=== PATIENT | male | born 1985 | race Hispanic/Latino ===

== ENCOUNTER 2016-12-13 18:26 | Emergency (ER) | payer MEDICAID, OTHER ==
[~2016-12-13] VITALS: Ht 170.2 cm; Wt 63.6 kg
[~2016-12-13 18:26] MED LIST: CYCL5TAB PO; NOMED; PRED50TA PO
[2016-12-13 18:40] VITALS: BP 110/69; PULSE 94; RESP 16; O2SAT 98
--- NOTE | 2016-12-13 18:46 | ED.REPORT ---
HPI-General Illness Date of Service Dec 13, 2016 ED Provider: Guero Chan MD Patient is a 31 year old male who presents to the ED complaining of a headache onset 2 weeks ago. Associated symptoms include rhinorrhea, congestion, intermittent fever, a non productive cough and a sore throat that started today. The patient reports that he has tried using Tylenol and DayQuil with no relief. He states that multiple people in the household are sick with similar symptoms but his are worse. Nursing Notes Stated Complaint: FEVER/CONGESTION/HEADACHE Chief Complaint: General Complaint Nursing Notes Reviewed: Yes Allergies: Coded Allergies: No Known Allergies (Unverified Allergy, Unknown, 12/11/15) Scheduled Prednisone (PredniSONE) 50 Mg Tablet 50 MG PO DAILY Pseudoephedrine (Pseudoephedrine) 30 Mg/5 Ml Liquid 30 MG PO DAILY Scheduled PRN Cyclobenzaprine (Cyclobenzaprine) 5 Mg Tablet 5 MG PO TID PRN PRN Spasm Ibuprofen (Ibuprofen) 600 Mg Tablet 600 MG PO QID PRN PRN For Pain Oxymetazoline HCl (No Drip Nasal Wray) 0.05 % Wray 30 ML NS DAILY PRN PRN For Congestion Miscellaneous Medications No Historical Medication (No Historical Medication) Ea General Time Seen by MD: 18:42 Chief Complaint Headache Hx Obtained From: Patient Arrived By: Walk-in Sudden in Onset?: Yes Onset Occurred: More than a week ago... (2 weeks) Symptom Duration: Since onset Location: : Head Quality: Painful Similar Sx Previous: No Past Medical History Past Medical History Denies Past Surgical History Denies Smoking History Unknown if Ever Smoker Social History Other Social History: Good social support, Ambulatory Status Independent Review of Systems Full Review of Systems Constitutional: Reports: Fever, Denies: Chills Ears / Nose / Throat: Reports: Nasal congestion, Sinus problem, Sore throat Respiratory: Reports: Non-productive cough, Denies: Shortness of breath GI: Denies: Nausea, Vomiting Skin: Denies Itching, Denies Rash Neurologic: Reports: Headache Complete sys rev & neg: except as marked. Physical Exam Vital Signs Vital Signs Date Time Temp Pulse Resp B/P Pulse Ox O2 Delivery O2 Flow Rate FiO2 12/13/16 19:59 37.1 88 16 114/71 98 Room Air 12/13/16 18:40 37.1 94 16 110/69 98 Room Air Initial VS: Reviewed General/Constitutional: Awake, Alert, No acute distress, Not toxic appearing Head / Eyes: Atraumatic, Normocephalic, PERRL, EOMI no fixed swelling of face no percussion tenderness to face ENT: Atraumatic, Airway patent, Mucous membranes moist, Pharynx NL, No peritonsillar abscess, Tympanic membs NL Pharynx / Tonsils / Uvula: Positive: Tonsillar erythema L, Tonsillar erythema R no tonsillar swelling uvula midline able to swallow without difficulty Neck: Atraumatic, Full range of motion mild anterior cervical adenopathy Respiratory / Chest: Atraumatic, Breath sounds NL, Breath sounds = bilat, No respiratory distress Cardiovascular: Heart rate NL, Regular rhythm, Heart sounds NL Abdomen: Atraumatic, Soft, Non-tender Skin: Atraumatic, Color NL, No rash, Warm, Dry Neurologic: Oriented X3, Speech NL, No motor deficits, No sensory deficits Psychiatric: Affect NL, Mood NL Re-Eval/Medical Decision Med Decision/Clinical Course Patient is a 31 year old male who presents to the ED complaining of a headache onset 2 weeks ago. Associated symptoms include rhinorrhea, congestion, intermittent fever, a non productive cough and a sore throat that started today. The patient reports that he has tried using Tylenol and DayQuil with no relief. He states that multiple people in the household are sick with similar symptoms but his are worse. Here in the emergency department the patient is afebrile, hemodynamically stable and in no apparent distress. Overall presentation is consistent with sinusitis. No evidence that this is bacterial in etiology and the patient is nontoxic-appearing. Lungs are clear to auscultation my suspicion for bacterial pneumonia is very low. I do not feel that chest x-ray is indicated. Patient is advised to take ibuprofen and use Afrin nasal spray. I have additionally prescribed pseudoephedrine for use as needed. I feel that he is appropriate for discharge. Prior to discharge follow- up and return precautions were reviewed in detail with the patient who verbalized understanding and agreement with the plan. The patient was discharged in stable condition. Time of Eval: 19:48 Re-Evaluation/Progress Note: Discussed plan for discharge. Patient understands and agrees to plan. All questions were addressed. Counseled Regarding: Diagnosis, Need for follow-up, When/why to return to ED Discharge & Departure Primary Impression: URI (upper respiratory infection) URI type: unspecified URI Qualified Code: J06.9 - Acute upper respiratory infection, unspecified Additional Impressions: Nasal congestion Fever Fever type: unspecified Qualified Code: R50.9 - Fever, unspecified Frontal sinus pain Disposition: Home Discharge Condition All VS Reviewed: Yes Condition: Stable Patient Instructions: Sinusitis (ED) Additional Instructions: Thank you for seeking care at the emergency room. It is difficult for us to make definitive diagnoses in the ED but we believe that you are experiencing sinusitis. Our primary goal today in the ED was to evaluate you for any life-threatening conditions. Your evaluation was reassuring. You will be discharged with a prescription for Sudafed. Take this during the day. You can also take 600mg of ibuprofen every day for the next week with food to help with the pressure. Use the nasal spray, Afrin to help with congestion. You should follow-up with your primary doctor in the next week. You should return to the ED immediately if you develop ongoing fever, swelling of the face or any other concerning signs or symptoms. Thank you for letting us partake in your care today. Referrals: Sandor Rodriguez MD (PCP) Barry Attestation Portions of this note were transcribed by Conchis Patino. I, Dr. Chan personally performed the history, physical exam and medical decision-making; I reviewed and confirmed the accuracy of the information in the transcribed note. Signed by: Barry Urban, 12/13/16 and 1950 copies to: Sandro Rodriguez MD, Beck O MD Dec 13, 2016 18:46 Nuvia Patino Dec 13, 2016 19:46
[2016-12-13] MEDS ORDERED: OXYM-45 NS (19:49)
[2016-12-13] MEDS ORDERED: PSEU30SY2 PO (19:49)
[2016-12-13] MEDS ORDERED: IBUP-1827 PO (19:49)
[2016-12-13 19:59] VITALS: BP 114/71; PULSE 88; RESP 16; O2SAT 98
== END 2016-12-13 20:00 | disposition home or self-care (01) ==
LOC: SED 18:26
DX: J06.9 Acute upper respiratory infection, unspecified (principal); J34.89 Other specified disorders of nose and nasal sinuses; R50.9 Fever, unspecified